=== PATIENT | male | born 1985 | race Caucasian/White ===

== ENCOUNTER 2019-10-24 15:37 | Observation (INO) ==
[2019-10-24 16:27] LABS: Basophils % 0.2 %; Eosinophils % 0.4 %; Hematocrit 49.7 % (37.5-50.1); Hemoglobin 17.7 g/dL (12.9-16.9); Immature Granulocytes % 0.5 % (0-4); Lymphocytes # 1.6 K/mcL (0.6-4.6); Mean Corpuscular HGB Conc 35.6 g/dL (31.6-35.5); Mean Corpuscular Hemoglobin 30.8 pg (28.0-33.3); Mean Corpuscular Volume 86.6 fL (83.0-100.0); Mean Platelet Volume 9.5 fL (9.4-12.4); Monocytes # 0.9 K/mcL (0.0-1.3); Monocytes % 10.3 %; Neutrophils # 5.7 K/mcL (1.6-8.9); Platelet Count 277 K/mcL (140-400); Red Blood Count 5.74 M/mcL (4.19-5.50); Red Cell Distribution Width 11.9 % (11.5-14.5); Segmented Neutrophils % 69.6 %; White Blood Count 8.3 K/mcL (4.3-11.1)
[2019-10-24 16:48] LABS: INR 1.1; Prothrombin Time 12.7 Seconds (9.4-12.1)
[2019-10-24 16:50] LABS: Activated Partial Thrombo Time 31.4 Seconds (26.0-36.0)
[2019-10-24 16:54] LABS: BUN/Creatinine Ratio 12 (6-26); Blood Urea Nitrogen 12 mg/dL (6-20); Calcium 9.4 mg/dL (8.6-10.3); Carbon Dioxide 26 mEq/L (23-29); Chloride 100 mEq/L (98-107); Glucose 96 mg/dL (70-105); Osmolality,Calculated 284 (280-300); Potassium 3.7 mEq/L (3.5-5.1); Sodium 137 mEq/L (136-145); eGFR For African Americans > 60 (> 60); eGFR For Non-African Americans > 60 (> 60)
[2019-10-24 16:56] LABS: Troponin I < 0.03 ng/mL (< 0.04)
[2019-10-24] MEDS ORDERED: *HR* Labetalol 20 MG/4 ML SYRINGE IVP STA (17:23)
[2019-10-24] MEDS ORDERED: Naloxone 0.4 MG/ML INJ IVP PRN (18:33)
[2019-10-24] MEDS ORDERED: Ondansetron ODT 4 MG TAB.RAPDIS SL PRN (18:33)
[2019-10-24] MEDS ORDERED: Mag Hydrox/Al Hydrox/Simeth 30 ML UDC PO PRN (18:33)
[2019-10-24] MEDS ORDERED: *HR* LORazepam 0.5 MG TABLET PO PRN (18:41)
[2019-10-24] MEDS ORDERED: *HR* LORazepam 1 MG TABLET PO ONE (20:00)
[2019-10-25] MEDS ORDERED: *HR* LORazepam 1 MG TABLET PO PRN (07:27)
[2019-10-25 08:26] LABS: Hematocrit 50.8 % (37.5-50.1); Hemoglobin 17.8 g/dL (12.9-16.9); Mean Corpuscular Volume 88.5 fL (83.0-100.0); Mean Platelet Volume 9.6 fL (9.4-12.4); Platelet Count 249 K/mcL (140-400); Red Blood Count 5.74 M/mcL (4.19-5.50); Red Cell Distribution Width 12.3 % (11.5-14.5); White Blood Count 6.7 K/mcL (4.3-11.1)
[2019-10-25 08:50] LABS: Alanine Aminotransferase 54 Units/L (7-52); Albumin 4.4 g/dL (3.5-5.7); Albumin/Globulin Ratio 1.5 (1.1-2.2); Alkaline Phosphatase 48 Units/L (34-104); Aspartate Amino Transferase 32 Units/L (13-39); BUN/Creatinine Ratio 13 (6-26); Blood Urea Nitrogen 14 mg/dL (6-20); Calcium 9.2 mg/dL (8.6-10.3); Carbon Dioxide 30 mEq/L (23-29); Chloride 100 mEq/L (98-107); Chol/HDL Ratio 5.2 (0-4.9); Cholesterol 235 mg/dL (< 200); Globulin 2.9 g/dL (2.4-3.5); Glucose 96 mg/dL (70-105); HDL Cholesterol 45 mg/dL (40-59); LDL Cholesterol,Calculated 171 mg/dL (0-99); Osmolality,Calculated 282 (280-300); Potassium 3.8 mEq/L (3.5-5.1); Sodium 136 mEq/L (136-145); Total Protein 7.3 g/dL (6.4-8.9); Triglycerides 94 mg/dL (< 150); eGFR For African Americans > 60 (> 60); eGFR For Non-African Americans > 60 (> 60)
[2019-10-25] MEDS ORDERED: *HR* Enoxaparin 40 MG/0.4 ML SYRINGE SQ SCH (09:00)
[2019-10-25] MEDS ORDERED: Venlafaxine XR (24 HR) 150 MG CAP.ER.24H PO SCH (09:00)
[2019-10-25] MEDS ORDERED: Aspirin Enteric Coated 81 MG Tablet PO SCH (09:00)
[2019-10-25 10:08] VITALS: BP 149/85
== END 2019-10-25 15:05 | disposition home or self-care (01) ==
LOC: INPPIK 15:37 → EMEROOPIK 15:37 → INPPIK 18:31
PROVIDERS: ADMIT Family Medicine; ATTEND Family Medicine